=== PATIENT | male | born 1970 | race Caucasian/White ===

== ENCOUNTER 2024-10-20 23:43 | Emergency (ER) | payer OTHER ==
[~2024-10-20] VITALS: Ht 188 cm; Wt 100.0 kg
[2024-10-20 23:48] VITALS: O2SAT 98
[2024-10-21 00:35] LABS: BASOPHILS % 0.5 % (0.0-2.0); EOSINOPHILS % 0.5 % (0.0-5.0); HEMATOCRIT. 43.9 % (42.0-52.0); HEMOGLOBIN. 15.6 g/dL (14.0-18.0); LYMPHOCYTES % 20.1 % (20.0-50.0); MEAN PLATELET VOLUME 6.6 fl (7.4-10.4); MONOCYTES % 5.0 % (2.0-8.0); NEUTROPHILS % 73.9 % (40.0-76.0); PLATELET 321 x1000/uL (130-400); RED BLOOD CELL COUNT 4.92 mill/uL (4.7-6.1); RED CELL DISTRIBUTION WIDTH 13.8 % (11.6-14.6)
[2024-10-21 00:38] LABS: CREATININE 0.8 mg/dL (0.6-1.3)
[2024-10-21 00:39] LABS: TROPONIN I HIGH SENSITIVITY 15 ng/L (3.0-53); UREA NITROGEN BLOOD 12 mg/dL (9-23)
[2024-10-21 00:40] LABS: ASPARTATE AMINOTRANSFERASE 25 IU/L (<34)
[2024-10-21 00:41] LABS: BILIRUBIN DIRECT 0.2 mg/dL (<=3.0); BILIRUBIN TOTAL 1.2 mg/dL (0.1-1.0); PROTEIN TOTAL 8.0 g/dL (6.0-8.3)
[2024-10-21] MEDS: SODIUM CHLORIDE 0.9% 1,000 ML IV ONE (02:31)
[2024-10-21] MEDS ORDERED: ALBUTEROL (0.083%) 2.5MG/3ML NEB HHN ONE (04:15)
[2024-10-21] MEDS ORDERED: METHYLPREDNISOLONE 40MG/ML INJ IV ONE (04:15)
[2024-10-21] MEDS ORDERED: POTASSIUM CHLORIDE 20MEQ/PACKET PO ONE (04:15)
[2024-10-21] MEDS: METHYLPREDNISOLONE SOD SUCC 125MG/2ML (ACT-O-VIAL) IV SCH (06:15)
[2024-10-21] MEDS: CEFTRIAXONE 1GM/50ML 50 ML IV ONE (06:15)
[2024-10-21] MEDS: POTASSIUM CHLORIDE 20MEQ/PACKET PO NR (06:32)
[2024-10-21] MEDS: AZITHROMYCIN 500MG/250ML 250 ML IV SCH (06:57)
[2024-10-21 07:03] VITALS: TEMP 36.8; O2SAT 98
[2024-10-21] MEDS: IOHEXOL-350 100 ML BOTTLE ONE (08:46)
[2024-10-21 09:04] VITALS: BP 146/103; PULSE 93; RESP 20; TEMP 98.24
== END 2024-10-21 07:54 | disposition short-term general hospital (02) ==
LOC: ER 10-21 00:12 → CMPBEDREQ 10-21 09:53
DX: J45.909 Unspecified asthma, uncomplicated (principal); R06.03 Acute respiratory distress
CPT/HCPCS: 71045; 93005; 80076; 80048; 83880; 85025; 85379; 87040; 84484; 36415; 71275; 96367; 96361; 96365; 96375; 99291; Q9967; J0456; J0696; J2919; J7030; Z7610 ×4